=== PATIENT | male | born 1955 | race Caucasian/White ===

== ENCOUNTER 2017-09-27 09:09 | Outpatient (CLI) ==
--- NOTE | 2017-09-27 09:49 | DI ---
EXAM: Two views of the chest. History: Cough. Findings: Heart size is within normal limits. No focal consolidation. No appreciable pleural fluid and no pneumothorax. No acute osseous abnormalities. Prominent contour of the ascending aorta. Impression: No acute cardiopulmonary process
== END 2017-09-27 09:10 | disposition home or self-care (01) ==
LOC: RAD 09:09
PROVIDERS: ATTEND Family Medicine
DX: R05 Cough (principal)